=== PATIENT | male | born 1970 | race Caucasian/White ===

== ENCOUNTER 2018-11-23 10:19 | Inpatient (IN) ==
[2018-11-23] MEDS ORDERED: HYDROmorphone INJ 1 MG/ML SYRINGE IV STA ×2 (10:38→11:44)
[2018-11-23] MEDS ORDERED: ONDANSETRON INJ 2 MG/ML 2 ML VIAL IV STA (10:38)
[2018-11-23] MEDS ORDERED: SODIUM CHLORIDE 0.9% 1000ML 1,000 ML IV SCH ×3 (10:45→17:01)
[2018-11-23 10:46] LABS: Basophils # (auto) 0.02 K/uL (0-0.2); Basophils % (auto) 0.2 %; Eosinophils # (auto) 0.04 K/uL (0-0.5); Eosinophils % (auto) 0.3 %; Hematocrit (blood only) 49.1 % (42-52); Hemoglobin 17.2 g/dL (14.0-18.0); Immature Granulocytes # (auto) 0.02 K/uL (0.00-0.02); Immature Granulocytes % (auto) 0.2 %; Lymphocytes # (auto) 0.66 K/uL (1.2-3.4); Lymphocytes % (auto) 5.2 %; Mean Corpuscular Volume 96.5 fL (80-100); Mean Platelet Volume 10.4 fL (7.4-10.4); Monocytes # (auto) 0.93 K/uL (0.11-0.59); Monocytes % (auto) 7.4 %; Neutrophils # (auto) 10.96 K/uL (1.4-6.5); Neutrophils % (auto) 86.7 %; Platelet Count 239 K/uL (130-400); RDW Coefficient of Variation 13.1 % (11.5-14.5); RDW Standard Deviation 46.4 fL (36.4-46.3); Red Blood Count 5.09 M/uL (4.7-6.1); White Blood Count 12.63 K/uL (4.8-10.8)
[2018-11-23 10:59] LABS: INR 1.1 (0.9-1.1); Prothrombin Time 11.1 Seconds (9.0-12.0)
[2018-11-23 11:01] LABS: Alanine Aminotransferase 295 U/L (12-78); Aspartate Aminotransferase 131 U/L (15-37); BUN Creatinine Ratio 11.5 (10-20); Blood Urea Nitrogen 11 mg/dl (7-18); Carbon Dioxide 26 mmol/L (21-32); Chloride 104 mmol/L (98-107); Creatinine Clr Calc Pharmacy 91.1 ml/min; Est GFR (African American) 105.1; Est GFR (Non-African American) 90.7; Glucose 118 mg/dl (70-99); Potassium 3.8 mmol/L (3.5-5.1); Sodium 137 mmol/L (136-145)
[2018-11-23 11:06] LABS: Alkaline Phosphatase 222 U/L (45-117); Bilirubin,Total 4.3 mg/dl (0.2-1); Globulin 4.2 gm/dl (2.5-4.0); Total Protein 8.2 gm/dl (6.4-8.2); Troponin I < 0.015 ng/ml (0-0.045)
--- NOTE | 2018-11-23 11:16 | XRay Report ---
KUB HISTORY: Acute generalized abdominal pain with dehydration ab pain, r/o free air COMPARISON: CT abdomen and pelvis 01/07/2010. FINDINGS: The bowel gas pattern is non-obstructive. There is no organomegaly. Surgical clips project over the upper scrotum bilaterally. Pelvic basin calcifications suggest probable phleboliths. No bessy l or ureteral calculi. The renal shadows are partially obscured by bowel gas. Cholecystectomy clips n oted. Mild to moderate formed stool about the right hemicolon and transverse colon. No renal calculi. No ureteral calculi. No pneumoperitoneum or pneumatosis. No fracture. IMPRESSION: 1. Nonobstructive bowel gas pattern. 2. No pneumatosis or pneumoperitoneum. Electronically signed by: Lonnie Moody M.D. 11/23/2018 11:14 AM
[2018-11-23] MEDS ORDERED: PIPERACILL/TAZOBAC CONSULT ACTIVE PRN ×2 (11:24→16:33)
[2018-11-23] MEDS ORDERED: PIPERACILLIN/TAZOBACTAM 4.5 GM/120 ML BAG IV ONE (11:24)
--- NOTE | 2018-11-23 11:25 | Emergency Department Note ---
Entered by Sathish Man acting as a scribe for Kirk Abdul MD History of Present Illness General Chief complaint: Abdominal Pain Stated complaint: SEVERE ABDOMINAL PAIN Time Seen by Provider: 11/23/18 10:30 Source: patient Limitations: no limitations History of Present Illness Onset (ago): day(s) (this morning) Location: abdomen Severity: similar to prior episodes Pain Consistency: + constant Maximum Pain Intensity: 10 Quality: + other (pinching) Relieved By: + none Associated symptoms: + denies other symptoms (falls), + weakness and + other ( not urinating and producing bowels regularly.); no chest pain, no fever/chills and no nausea/vomiting The patient is a 48 white male w/ PMHx kidney stone who presents to the ED w/ CC of constant abdominal pain beginning this morning. The patient notes he had a similar episode on Sunday. The patient notes his pain is on the top, middle , and right side of his abdomen. He describes the pain as a pinching pain. He notes nothing makes this pain better. The patient states he has not been urinating and producing bowels normally. He notes his urine has been looking darker. He notes he has been pretty lethargic. The patient notes he got his gallbladder taken out 8 years ago and has passed kidney stones before. He denies chest pain, fevers, chills, falls, vomiting, nausea, heavy lifting, and history of pancreatitis. Home Medications Home Medications Medication Instructions Recorded Confirmed Type No Known Home Medications 11/23/18 11/23/18 History Allergies Allergy/AdvReac Type Severity Reaction Status Date / Time No Known Allergies Allergy Unknown Verified 11/23/18 10:54 Past Med/Surg History Medical History No significant past medical history Kidney stone Surgical History History of cholecystectomy Social History Feels Safe at Home: Yes Smoking Status: Current some day smoker Review of Systems See HPI for pertinent positives & negatives. and A total of 10 systems reviewed and were otherwise negative Physical Exam Vital Signs Vital Signs - 24 hr 11/23/18 10:25 11/23/18 10:32 11/23/18 10:34 Temperature 36.4 C L 36.7 C Temperature Source Oral Oral Sepsis Recent Fever Within 48 Hours No No Sepsis New/Unexplained Change in Mental Status No No Sepsis Action Taken by Nursing No Action Required No Action Required Pulse Rate 90 93 H 82 Respiratory Rate 20 16 18 Respiratory Depth Normal Blood Pressure 154/105 H 154/105 H Blood Pressure Mean 121 121 Pulse Oximetry 96 97 Oxygen Delivery Method Room Air Room Air 11/23/18 10:50 11/23/18 11:52 11/23/18 12:00 Temperature Temperature Source Sepsis Recent Fever Within 48 Hours Sepsis New/Unexplained Change in Mental Status Sepsis Action Taken by Nursing Pulse Rate 91 H 85 84 Respiratory Rate 15 40 H 22 Respiratory Depth Blood Pressure 133/70 127/71 Blood Pressure Mean 91 89 Pulse Oximetry Oxygen Delivery Method 11/23/18 12:10 11/23/18 12:20 11/23/18 12:30 Temperature Temperature Source Sepsis Recent Fever Within 48 Hours Sepsis New/Unexplained Change in Mental Status Sepsis Action Taken by Nursing Pulse Rate 84 87 85 Respiratory Rate 26 H 22 23 Respiratory Depth Blood Pressure Blood Pressure Mean Pulse Oximetry Oxygen Delivery Method 11/23/18 12:31 Temperature Temperature Source Sepsis Recent Fever Within 48 Hours Sepsis New/Unexplained Change in Mental Status Sepsis Action Taken by Nursing Pulse Rate 97 H Respiratory Rate 36 H Respiratory Depth Blood Pressure 107/102 H Blood Pressure Mean 103 Pulse Oximetry Oxygen Delivery Method GENERAL: Uncomfortable in appearance. EYE EXAM: Normal conjunctiva. PERRL, no anisocoria and EOM's grossly intact w/o pain OROPHARYNX: Moist MM. NECK: Supple, no nuchal rigidity, no adenopathy, non-tender. No signs of meningismus LUNGS: Clear to auscultation. Normal chest wall mechanics. HEART: NSR, no MRG ABDOMEN: Abdomen soft, normo-active bowel sounds, no masses, no rebound or guarding. Epigastric RUQ periumbilical TTP. BACK: No CVA TTP SKIN: No rashes and no bruising. UPPER EXTREMITIES: Upper extremities are grossly normal. LOWER EXTREMITIES: No pitting edema. No calf pain NEURO EXAM: A and O x3. GCS 15. Moves all 4 extremities on command w/o issue. Course 1056: Past medical records reviewed. The patient was evaluated in room C4, and a complete history and physical examination were performed. 1203: I reviewed the patient's case with Dr. Rakel Delarosa [facility]. She will evaluate the patient for further management. 1216: I reviewed the patient's case with Dr. Carcamo. She recommends getting a MRCP. Administered Medications Sodium Chloride (Nss 1000ml) 1,000 mls @ 200 mls/hr IV .Q5H STA Stop: 11/23/18 17:06 Last Admin: 11/23/18 12:44 Dose: 200 mls/hr Ioversol (Optiray 320 100ml) 94 ml IV ONCE PRN PRN Reason: Interaction Checking Stop: 11/27/18 11:40 Last Admin: 11/23/18 11:41 Dose: 94 ml Discontinued Medications Hydromorphone HCl (Dilaudid) 1 mg IV NOW STA Stop: 11/23/18 10:39 Last Admin: 11/23/18 10:43 Dose: 1 mg Hydromorphone HCl (Dilaudid) 1 mg IV NOW STA Stop: 11/23/18 11:45 Last Admin: 11/23/18 11:48 Dose: 1 mg Sodium Chloride (Nss 1000ml) 1,000 mls @ 999 mls/hr IV .Q1H1M LISSETH Stop: 11/23/18 11:45 Last Infusion: 11/23/18 11:42 Dose: 0 mls/hr Admin: 11/23/18 10:43 Dose: 999 mls/hr Piperacillin Sod/Tazobactam Sod (Zosyn) 4.5 gm in 120 mls @ 240 mls/hr IV NOW ONE Stop: 11/23/18 11:53 Last Infusion: 11/23/18 12:55 Dose: 0 mls/hr Admin: 11/23/18 11:45 Dose: 240 mls/hr Ondansetron HCl (Zofran) 4 mg IV NOW STA Stop: 11/23/18 10:39 Last Admin: 11/23/18 10:43 Dose: 4 mg Medical Decision Making Medical Records Attestation: I reviewed the patient's medical records. Home Medications Current Medication List: was personally reviewed by me Laboratory Data Attestation: I reviewed the patient's lab results. Result diagrams: 11/23/18 10:30 11/23/18 10:30 Lab Results 11/23/18 11/23/18 11/23/18 Range/Units 10:30 10:30 10:30 WBC 12.63 H (4.8-10.8) K/uL RBC 5.09 (4.7-6.1) M/uL Hgb 17.2 (14.0-18.0) g/dL Hct 49.1 (42-52) % MCV 96.5 (80-100) fL MCH 33.8 (25-34) pg MCHC 35.0 (32-36) g/dL RDW Std Deviation 46.4 H (36.4-46.3) fL RDW Coeff of Ainsley 13.1 (11.5-14.5) % Plt Count 239 (130-400) K/uL MPV 10.4 (7.4-10.4) fL Immature Gran % (Auto) 0.2 % Neut % (Auto) 86.7 % Lymph % (Auto) 5.2 % Gregory % (Auto) 7.4 % Eos % (Auto) 0.3 % Baso % (Auto) 0.2 % Immature Gran # (Auto) 0.02 (0.00-0.02) K/uL Neut # (Auto) 10.96 H (1.4-6.5) K/uL Lymph # (Auto) 0.66 L (1.2-3.4) K/uL Gregory # (Auto) 0.93 H (0.11-0.59) K/uL Eos # (Auto) 0.04 (0-0.5) K/uL Baso # (Auto) 0.02 (0-0.2) K/uL PT 11.1 (9.0-12.0) Seconds INR 1.1 (0.9-1.1) Sodium 137 (136-145) mmol/L Potassium 3.8 (3.5-5.1) mmol/L Chloride 104 (98-107) mmol/L Carbon Dioxide 26 (21-32) mmol/L Anion Gap 7.0 (3-11) BUN 11 (7-18) mg/dl Creatinine 0.97 (0.6-1.4) mg/dl Est Cr Clr Drug Dosing 91.1 ml/min Est GFR ( Amer) 105.1 Est GFR (Non-Af Amer) 90.7 BUN/Creatinine Ratio 11.5 (10-20) Glucose 118 H (70-99) mg/dl Lactate (0.4-2.0) mmol/L Calcium 9.0 (8.5-10.1) mg/dl Total Bilirubin 4.3 H (0.2-1) mg/dl AST 131 H (15-37) U/L ALT 295 H (12-78) U/L Alkaline Phosphatase 222 H (45-117) U/L Troponin I < 0.015 (0-0.045) ng/ml Total Protein 8.2 (6.4-8.2) gm/dl Albumin 4.0 (3.4-5.0) gm/dl Globulin 4.2 H (2.5-4.0) gm/dl Albumin/Globulin Ratio 1.0 (0.9-2) Lipase 137 (73-393) U/L Urine Color Urine Appearance (Clear) Urine pH (4.5-7.5) Ur Specific [place] (1.000-1.030) Urine Protein (Negative) Urine Glucose (UA) (Negative) Urine Ketones (Negative) Urine Blood (Negative) Urine Nitrite (Negative) Urine Bilirubin (Negative) Urine Urobilinogen (Negative) Ur Leukocyte Esterase (Negative) 11/23/18 11/23/18 Range/Units 10:48 11:55 WBC (4.8-10.8) K/uL RBC (4.7-6.1) M/uL Hgb (14.0-18.0) g/dL Hct (42-52) % MCV (80-100) fL MCH (25-34) pg MCHC (32-36) g/dL RDW Std Deviation (36.4-46.3) fL RDW Coeff of Ainsley (11.5-14.5) % Plt Count (130-400) K/uL MPV (7.4-10.4) fL Immature Gran % (Auto) % Neut % (Auto) % Lymph % (Auto) % Gregory % (Auto) % Eos % (Auto) % Baso % (Auto) % Immature Gran # (Auto) (0.00-0.02) K/uL Neut # (Auto) (1.4-6.5) K/uL Lymph # (Auto) (1.2-3.4) K/uL Gregory # (Auto) (0.11-0.59) K/uL Eos # (Auto) (0-0.5) K/uL Baso # (Auto) (0-0.2) K/uL PT (9.0-12.0) Seconds INR (0.9-1.1) Sodium (136-145) mmol/L Potassium (3.5-5.1) mmol/L Chloride (98-107) mmol/L Carbon Dioxide (21-32) mmol/L Anion Gap (3-11) BUN (7-18) mg/dl Creatinine (0.6-1.4) mg/dl Est Cr Clr Drug Dosing ml/min Est GFR ( Amer) Est GFR (Non-Af Amer) BUN/Creatinine Ratio (10-20) Glucose (70-99) mg/dl Lactate 0.8 (0.4-2.0) mmol/L Calcium (8.5-10.1) mg/dl Total Bilirubin (0.2-1) mg/dl AST (15-37) U/L ALT (12-78) U/L Alkaline Phosphatase (45-117) U/L Troponin I (0-0.045) ng/ml Total Protein (6.4-8.2) gm/dl Albumin (3.4-5.0) gm/dl Globulin (2.5-4.0) gm/dl Albumin/Globulin Ratio (0.9-2) Lipase (73-393) U/L Urine Color Dark Yellow Urine Appearance Clear (Clear) Urine pH 7.5 (4.5-7.5) Ur Specific [place] 1.025 (1.000-1.030) Urine Protein Negative (Negative) Urine Glucose (UA) Negative (Negative) Urine Ketones Negative (Negative) Urine Blood Negative (Negative) Urine Nitrite Negative (Negative) Urine Bilirubin 2+ H (Negative) Urine Urobilinogen Positive H (Negative) Ur Leukocyte Esterase Negative (Negative) Imaging Data Radiologist's Impression: Radiology results as stated below per my review and the radiologist's interpretation: ABDOMEN AND PELVIS CT WITH IV CONTRAST CT DOSE: 334.40 mGy.cm HISTORY: Acute generalized abdominal pain ab pain TECHNIQUE: Multiaxial CT images of the abdomen and pelvis were performed following the use of intravenous contrast. A dose lowering technique was utilized adhering to the principles of ALARA. COMPARISON STUDY: CT abdomen and pelvis 01/07/2010. FINDINGS: Mild dependent subsegmental bibasilar atelectasis. Calcific granulomata about the lung bases. Evaluation of the lung bases is mildly limited secondary to respiratory motion. No pneumatosis or pneumoperitoneum. The imaged inferior cardiac chambers appear unremarkable. Prior cholecystectomy. Moderate intrahepatic and extrahepatic biliary ductal dilation, possibly on a postsurgical basis. Minimal air about the distal common bile duct is likely secondary to incompetent sphincter of Oddi. No choledocholithiasis identified. Liver otherwise appears unremarkable. Scattered calcified granulomata noted about the spleen. Pancreas and adrenal glands are unremarkable. Probable cyst of the superior pole left kidney, 7 mm. Kidneys are otherwise unremarkable. No renal calculi or hydronephrosis. Mild prostamegaly. Ureters and urinary bladder are within normal limits. Tiny fat filled bilateral inguinal hernias. Aorta and IVC are unremarkable. No adenopathy. Mild wall thickening about the distal esophagus. No bowel obstruction. Visualized appendix appears unremarkable. No ascites or mesenteric inflammation. A few fluid-filled loops of small bowel central abdomen are noted with air-fluid levels physiologic. Bones appear to be intact. IMPRESSION: 1. Prior cholecystectomy. Moderate intrahepatic and extrahepatic biliary ductal dilation is likely on a postsurgical basis. Correlate with liver function tests. 2. No bowel obstruction or focal bowel wall thickening. 3. Mild nonspecific wall thickening about the distal esophagus. 4. Prior granulomatous disease. Electronically signed by: Lonnie Moody M.D. 11/23/2018 11:57 AM KUB HISTORY: Acute generalized abdominal pain with dehydration ab pain, r/o free air COMPARISON: CT abdomen and pelvis 01/07/2010. FINDINGS: The bowel gas pattern is non-obstructive. There is no organomegaly. Surgical clips project over the upper scrotum bilaterally. Pelvic basin calcifications suggest probable phleboliths. No renal or ureteral calculi. The renal shadows are partially obscured by bowel gas. Cholecystectomy clips noted. Mild to moderate formed stool about the right hemicolon and transverse colon. No renal calculi. No ureteral calculi. No pneumoperitoneum or pneumatosis. No fracture. IMPRESSION: 1. Nonobstructive bowel gas pattern. 2. No pneumatosis or pneumoperitoneum. Electronically signed by: Lonnie Moody M.D. 11/23/2018 11:14 AM Blood Pressure Blood Pressure Findings: Elevated blood pressure Blood Pressure Disposition: further management by hospitalist GAVIN Ortiz The patient is a 48 white male w/ PMHx kidney stone who presents to the ED w/ CC of constant abdominal pain beginning this morning. Differential diagnosis: Etiologies such as appendicitis, diverticulitis, PUD, biliary pathology, UTI, pancreatitis, obstruction, mesenteric ischemia, aortic pathology, infections, inflammatory bowel disease, renal colic, as well as others were entertained. Patient was seen and evaluated the bedside. The patient does have a known history of alcohol use. Patient states that he had 3 whiskey and Coke's last evening. He has had intense abdominal pain beginning today. On exam the patient is uncomfortable in appearance. Patient does have prior history of cholecystectomy. Patient did a blood work completed which shows an elevated bilirubin and liver function test. Given the patient's known history of a cholecystectomy believe the patient would benefit from likely ERCP. CT the abdomen pelvis was obtained. Upon reassessment the patient was feeling improved. Patient does have a mild white count at 12,000. No fevers noted. Patient was started on antibiotics. GI was consulted. They recommended MRCP which was ordered. Patient was admitted to the medicine service. I did relate the recommendations of GI to the medicine service. Impression & Plan Biliary obstruction, Pancreatitis, Abdominal pain, Alcohol cessation counseling , Encounter for tobacco use cessation counseling Discharge Plan Visit Data Chief Complaint: Abdominal Pain Stated Complaint: SEVERE ABDOMINAL PAIN ED Provider: Kirk Abdul Discharge Problem: Biliary obstruction, Pancreatitis, Abdominal pain, Alcohol cessation counseling , Encounter for tobacco use cessation counseling Patient Disposition: Being Evaluated by Hospitalist Forms Stand Alone Forms: Call Back Authorization, My [facility] Prescriptions Prescriptions: No Action No Known Home Medications RF: 0 Referrals Referrals: Tk Patton MD [Primary Care Provider] - The scribe's documentation has been prepared under my direction and personally reviewed by me in its entirety. I confirm that the note above accurately reflects all work, treatment, procedures, and medical decision making performed by me.
[2018-11-23] MEDS ORDERED: IOVERSOL 100ml IV PRN (11:41)
--- NOTE | 2018-11-23 11:59 | CT Scan Report ---
ABDOMEN AND PELVIS CT WITH IV CONTRAST CT DOSE: 334.40 mGy.cm HISTORY: Acute generalized abdominal pain ab pain TECHNIQUE: Multiaxial CT images of the abdomen and pelvis were performed following the use of intrave nous contrast. A dose lowering technique was utilized adhering to the principles of ALARA. COMPARISON STUDY: CT abdomen and pelvis 01/07/2010. FINDINGS: Mild dependent subsegmental bibasilar atelectasis. Calcific granulomata about the lung bases. Evaluat ion of the lung bases is mildly limited secondary to respiratory motion. No pneumatosis or pneumoperi toneum. The imaged inferior cardiac chambers appear unremarkable. Prior cholecystectomy. Moderate intrahepatic and extrahepatic biliary ductal dilation, possibly on a postsurgical basis. Minimal air about the distal common bile duct is likely secondary to incompetent sphincter of Oddi. No choledocholithiasis identified. Liver otherwise appears unremarkable. Scattered calcified granulomata noted about the spleen. Pancreas and adrenal glands are unremarkable. Probable cyst of the superior pole left kidney, 7 mm. Kidneys are otherwise unremarkable. No renal calculi or hydronephrosis. Mild prostamegaly. Ureters and urinary bladder are within normal limits. Tiny fat fi lled bilateral inguinal hernias. Aorta and IVC are unremarkable. No adenopathy. Mild wall thickening about the distal esophagus. No bowel obstruction. Visualized appendix appears un remarkable. No ascites or mesenteric inflammation. A few fluid-filled loops of small bowel central ab domen are noted with air-fluid levels physiologic. Bones appear to be intact. IMPRESSION: 1. Prior cholecystectomy. Moderate intrahepatic and extrahepatic biliary ductal dilation is likely on a postsurgical basis. Correlate with liver function tests. 2. No bowel obstruction or focal bowel wall thickening. 3. Mild nonspecific wall thickening about the distal esophagus. 4. Prior granulomatous disease. Electronically signed by: Lonnie Moody M.D. 11/23/2018 11:57 AM
[2018-11-23 12:01] LABS: Appearance Urine Clear (Clear); Blood Urine Negative (Negative); Color Urine Dark Yellow; Glucose Urine UA Negative (Negative); Ketones Urine Negative (Negative); Leukocyte Esterase Urine Negative (Negative); Nitrite Urine Negative (Negative); Protein Urine Negative (Negative); Specific Gravity Urine 1.025 (1.000-1.030); Urobilinogen Urine Positive (Negative); pH Urine 7.5 (4.5-7.5)
[2018-11-23] MEDS ORDERED: SODIUM CHLORIDE 0.9% 1000ML 1,000 ML IV STA (12:07)
[2018-11-23 12:08] LABS: Bilirubin Urine 2+ (Negative)
[2018-11-23 12:09] LABS: Ictotest Urine Positive (Negative)
--- NOTE | 2018-11-23 13:12 | History & Physical Report ---
Date of Service November 23, 2018 Assessment & Plan (1) SIRS (systemic inflammatory response syndrome): (2) Abdominal pain: This is a 48 year old male with no significant pmh who presents to [facility] ED secondary to abdominal pain x 3 days. LFTS elevated Tbili 4.3, AST 131, ALT 295, Alk Phos 222 WBC elevated to 12k Lactate and lipase WNL CT Scan abd/pelvis: IMPRESSION: 1. Prior cholecystectomy. Moderate intrahepatic and extrahepatic biliary ductal dilation is likely on a postsurgical basis. Correlate with liver function tests. GI contacted by ER physician, MRCP ordered and is pending Pt met SIRS criteria on admission with WBC > 12k, RR > 24, HR >90 Source: GI (ddx as noted below) He is afebrile, lactate WNL Received IVF 1L with continued maintenance at 200c/hr and broad spectrum antibiotic zosyn Dx but not limited to: biliary obstruction secondary to strict[facility] at [facility], choledocholithasis, cholangitis, acute hepatitis, pancreatitis -admit to med/surg -consult GI Dr Carcamo -MRCP pending -NPO except chips and sips -IVF 200cc/hr -follow cbc, cmp, lipase -continue IV zosyn until cholangitis ruled out (3) Tobacco abuse: -offered nicotine patch, pt declines at this time -encouraged tobacco cessation (4) DVT prophylaxis: -SCDS, encourage ambulation Disposition: D/C to home when medically able Follow up: PCP Dr. Patton upon discharge Recommend tobacco cessation education prior to discharge Pt was seen in collaboration with Dr. Rinaldi, please see addendum History of Present Illness Chief Complaint: Abdominal pain x 3 days. Primary Care Provider: Tk Pattno MD This is a 48 year old male with no significant pmh who presents to [facility] ED secondary to abdominal pain x 3 days. Sx initially started on sunday after eating spicy meal, pain was central, nonradiating, relieved with rest, made worse with movement. Sx resolved in approx 2-3 hrs on there own w/o intervention. he felt well, was just, "sore." Was able to go to work Sunday and came home and drank 3 whiskey and cokes. Woke up early this morning at 1am with severe 16/10 abdominal pain, again central, nonradiating, worse with movement, deep breathing, lying flat. Sx impoved with rest, bringing knees to chest. Tried alkaseltzer no relief. [place] diaphoretic. Was able to return to sleep approx 1 hr and sx were unrelenting therefore he presented to ED. Currently pain 3/10. Denies fever, chills, recent URI or illness, chest pain, sob at rest, hemoptysis, cough, n/v/d, dysuria, hematuria, increased freq/ urg with urination. 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 He is an every day tobacco user with snuff, 3/4 can a day. Drinks sunday and sunday nights 3 whiskey and cokes. Otherwise no PMH except he does have a hx of cholecystectomy and nephrolithiasis. No FH of Liver disease, +mother with colon cancer. local intermodal truck driver significant other is at bedside, Ginette. Allergies Allergy/AdvReac Type Severity Reaction Status Date / Time No Known Allergies Allergy Unknown Verified 11/23/18 10:54 Home Medications Home Medications Medication Instructions Recorded Confirmed Type No Known Home Medications 11/23/18 11/23/18 History Past Med/Surg History Medical History Alcohol use Biliary obstruction GERD (gastroesophageal reflux disease) History of esophageal dilatation secondary to food bolus due to chronic GERD Kidney stone Pancreatitis Tobacco use Surgical History History of cholecystectomy History of esophagogastroduodenoscopy (EGD) Hx of cholecystectomy Family History Father Unknown family medical history Mother Colon cancer Social History marital status: Single marital status details: Long time Girlfriend of 20 years Current Living Situation: Significant Other current occupational status: employed current occupation: [employer] Other Information That Helps Us Care for You: No Feels Safe at Home: Yes Safety Concerns: Feels Safe At This Time Smoking Status: Former smoker Tobacco Type: smokeless tobacco Cigarettes per Day: used to smoke occassionally at sister's house Do You Dip or Chew Tobacco: Yes (1/2-3/4 can/day) Second Hand Exposure: No Tobacco Cessation Education Requested by Patient: No Hx Alcohol Use: Yes Alcohol type: hard liquor Alcohol Intake Frequency: a few times a week Alcohol Intake Frequency Comment: 2 nights weekly, sunday/sunday 3 whiskey and cokes Hx Substance Use: No Beliefs That Will Affect Care: None Preferred Language: Serbian Communication Ability: Effective Fabrication Specialist Required: No Review of Systems All systems reviewed & are unremarkable except as noted in HPI & below Physical Exam 2 Vital Signs (Past 24 Hours): Last Vital Signs Temp 36.7 C 11/23/18 10:34 Pulse 97 H 11/23/18 12:31 Resp 36 H 11/23/18 12:31 BP 107/102 H 11/23/18 12:31 Pulse Ox 97 11/23/18 10:34 Physical Exam: Gen: WD/WN, M, diaphoretic, +pain, sitting up in bed, pleasant , conversing easily Head: Normocephalic, Atraumatic Eyes: Sclera normal, no conjunctival injection, PERRLA, EOMI ENT: Gross hearing intact, normal pharynx, mucous membranes dry Neck: supple, no adenopathy, No JVD, no bruit, Resp: Clear to auscultation b/l, no wheeze, rales, rhonchi. Normal insp/exp effort, no accessory muscle use CV: Regular rate, regular rhythm, no murmur, rub, gallop, or ectopy Abd: + hypoactive BS x 4, soft, +tender in epigastrum/periumbilical region, + guarding, no rebound or rigidity, nondistended Musculoskeletal: moves extremities active rom x 4, strength intact, good ict teacher strength Extremities: No edema bilaterally Skin: warm, moist, no rash, negative turgor, cap refill < 2sec Neuro: Alert and oriented x 3, speech normal, good mood/affect, cran nerve 2-12 intact grossly : deferred Results & Data Laboratory Results Short CBC 11/23/18 11/23/18 Range/Units 10:30 10:30 WBC 12.63 H (4.8-10.8) K/uL Hgb 17.2 (14.0-18.0) g/dL Hct 49.1 (42-52) % Plt Count 239 (130-400) K/uL Total Bilirubin 4.3 H (0.2-1) mg/dl BMP 11/23/18 10:30 Sodium 137 Potassium 3.8 Chloride 104 Carbon Dioxide 26 BUN 11 Creatinine 0.97 Glucose 118 H Calcium 9.0 Cardiac Enzymes 11/23/18 Range/Units 10:30 Troponin I < 0.015 (0-0.045) ng/ml Liver Function 11/23/18 Range/Units 10:30 Total Bilirubin 4.3 H (0.2-1) mg/dl AST 131 H (15-37) U/L ALT 295 H (12-78) U/L Alkaline Phosphatase 222 H (45-117) U/L Albumin 4.0 (3.4-5.0) gm/dl Urine 11/23/18 Range/Units 11:55 Urine Color Dark Yellow Urine Appearance Clear (Clear) Urine pH 7.5 (4.5-7.5) Ur Specific [place] 1.025 (1.000-1.030) Urine Protein Negative (Negative) Urine Glucose (UA) Negative (Negative) Diagnostic Findings KUB: IMPRESSION: 1. Nonobstructive bowel gas pattern. 2. No pneumatosis or pneumoperitoneum. Abd/pelvis CT: IMPRESSION: 1. Prior cholecystectomy. Moderate intrahepatic and extrahepatic biliary ductal dilation is likely on a postsurgical basis. Correlate with liver function tests. 2. No bowel obstruction or focal bowel wall thickening. 3. Mild nonspecific wall thickening about the distal esophagus. 4. Prior granulomatous disease. Code Status & VTE Plan Code Status Full Code VTE Prophylaxis Plan VTE Prophylaxis will be ordered: Yes Reason for no VTE drug order: Treatment not indicated Supervising Physician Co-Signing Physician Notes I have seen and examined the patient with our team's physician housekeeper/laundry assistant and agree with the assessment and plan as above and would like to add that MRCP was completed "Prior cholecystectomy. Moderate intrahepatic and extrahepatic biliary ductal dilation is noted with abrupt luminal narrowing about the distal common bile duct just proximal to the ampulla. No discrete choledocholithiasis identified, however this finding is concerning for underlying biliary stricture or choledocholithiasis. " At this time, we are contacting the gastroenterology service to consider performing ERCP for patient with possible choledocholithiasis will continue IV Zosyn for antibiotic coverage as above and pain medications and IV hydration agree with other medical management as documented by physician housekeeper/laundry assistant patient seen and examined in the ED Vitals: hemodynamically stable, afebrile General: speaking on room air, occasional wincing from pain Abdomen: soft, nontender, bowel sounds present, patient points to pain of central abdomen Heart:regular rate Lungs: clear to auscultation bilaterally, no wheezing Extremities: no calf tenderness Neuro/Psych: awake and alert, no focal neurological deficits _ (1) Abdominal pain Abdominal location: generalized Qualified Code(s): R10.84 - Generalized abdominal pain
--- NOTE | 2018-11-23 14:30 | XRay Report ---
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 Screening for MR I. COMPARISON: CT abdomen and pelvis of same day TECHNIQUE: 3 views of the orbits FINDINGS: No opaque foreign body of the orbits identified. No acute facial bone fracture. Paranasal sinuses nabila ear clear. IMPRESSION: No opaque foreign body of the orbits identified. The above report was generated using voice recognition software. It may contain grammatical, syntax o r spelling errors. Electronically signed by: Lonnie Moody M.D. 11/23/2018 2:28 PM
--- NOTE | 2018-11-23 15:15 | Magnetic Resonance Report ---
MR MRCP HISTORY: 48 years-old Male elevated t bili and LFTs acute central abdominal pain with elevated LFTs COMPARISON: CT abdomen and pelvis of same day TECHNIQUE: MRCP without the use of IV contrast was obtained according to institutional protocol. FINDINGS: 7 mm T2 hyperintense lesions of the superior pole left kidney suggestive of a cyst. The spleen, pancr eas and adrenal glands appear unremarkable. No focal abnormality identified within the hepatic parenc hyma. No bowel obstruction or aortic aneurysm. Periaortic lymph nodes are seen measuring up to 7 mm i n short axis, likely reactive. Prior cholecystectomy. Moderate intrahepatic and extrahepatic biliary ductal dilation with common bile duct measuring up to 10 mm transversely. There is abrupt cut off not ed about the distal common bile duct on image 86 series 6 is proximal to the ampulla. Cystic duct rem nant appears unremarkable. Pancreatic duct is unremarkable. IMPRESSION: Prior cholecystectomy. Moderate intrahepatic and extrahepatic biliary ductal dilation is noted with a brupt luminal narrowing about the distal common bile duct just proximal to the ampulla. No discrete c holedocholithiasis identified, however this finding is concerning for underlying biliary stricture or choledocholithiasis. Further evaluation with ERCP may be beneficial to further characterize. The above report was generated using voice recognition software. It may contain grammatical, syntax o r spelling errors. Electronically signed by: Lonnie Moody M.D. 11/23/2018 3:13 PM
[2018-11-23] MEDS ORDERED: ONDANSETRON INJ 2 MG/ML 2 ML VIAL IV PRN (16:33)
--- NOTE | 2018-11-23 16:51 | History & Physical Report ---
Date of Service November 23, 2018 History of Present Illness Chief Complaint: Abdominal pain Primary Care Provider: Tk Patton MD 48 yo male with a history of prior etoh use (now reportedly drinking whisky on the weekends), prior cholecystectomy 7-8 years ago. Reports having severe abd pain- ruq on sunday that came out of the blue, felt so severe he has some fevers, took florencia seltzer and it got better. Recurrence of the same pain around 1 am this morning, took florencia setlzer again but pain persisted so came into the ER. In the er, noted to be afebrile, hemodynamically stable. Wbc count elevation and and lft elevation - cholestatic pattern. CT A/P with contrast done showing ih/eh biliary dilation reportedly, normal pancreas. ER called me and MRCP was done. MRCP shows distal cbd stricture, no evidence of stones. Currently, patient is nearly pain free in his room on the floor- reports pain is maybe 1/10, but when he came in it was 10/10. No fevers, chills. Feels slightly constipated - otherwise no other complaints. Reports no weight loss, no changes in his stool pattern or color. Allergies Allergy/AdvReac Type Severity Reaction Status Date / Time No Known Allergies Allergy Unknown Verified 11/23/18 10:54 Home Medications Home Medications Medication Instructions Recorded Confirmed Type No Known Home Medications 11/23/18 11/23/18 History Past Med/Surg History Medical History Alcohol use Biliary obstruction GERD (gastroesophageal reflux disease) History of esophageal dilatation secondary to food bolus due to chronic GERD Kidney stone Pancreatitis Tobacco use Surgical History History of cholecystectomy History of esophagogastroduodenoscopy (EGD) Hx of cholecystectomy Family History Father Unknown family medical history Mother Colon cancer Social History marital status: Single marital status details: Long time Girlfriend of 20 years Current Living Situation: Significant Other current occupational status: employed current occupation: [employer] Other Information That Helps Us Care for You: No Feels Safe at Home: Yes Safety Concerns: Feels Safe At This Time Smoking Status: Former smoker Tobacco Type: smokeless tobacco Cigarettes per Day: used to smoke occassionally at sister's house Do You Dip or Chew Tobacco: Yes (1/2-3/4 can/day) Second Hand Exposure: No Tobacco Cessation Education Requested by Patient: No Hx Alcohol Use: Yes Alcohol type: hard liquor Alcohol Intake Frequency: a few times a week Alcohol Intake Frequency Comment: 2 nights weekly, sunday/sunday 3 whiskey and cokes Hx Substance Use: No Beliefs That Will Affect Care: None Preferred Language: Kiswahili Communication Ability: Effective Mechanical Energy Engineer Required: No Review of Systems All systems reviewed & are unremarkable except as noted in HPI & below Physical Exam 2 Vital Signs (Past 24 Hours): Last Vital Signs Temp 37.2 C 11/23/18 16:02 Pulse 80 11/23/18 16:02 Resp 20 11/23/18 16:02 BP 143/83 H 11/23/18 16:02 Pulse Ox 95 11/23/18 16:02 Physical Exam: General NAD Eyes: PERRL, conjunctivae normal, anicteric sclerae Respiratory: normal respiratory effort, lungs clear to auscultation Cardiovascular: RRR, no murmur, no edema Gastrointestinal (Abdomen): normal bowel sounds, soft, nontender, no hepatosplenomegaly Skin: no rashes, warm and dry Results & Data Laboratory Results Labs all reviewed AST/ALT/Alk phos/TB elevation Diagnostic Findings MRCP reviewed CT A/P reviewed Code Status & VTE Plan VTE Prophylaxis Plan VTE Prophylaxis will be ordered: Yes Reason for no VTE drug order: Treatment not indicated Supervising Physician Co-Signing Physician Notes 48 yo male with history of a cholecystectomy 8 years ago, with intermittent ruq abd pain leading to ER visit. Imaging showing ? cbd stricture, cholestatic lft elevation, afebrile. No stones noted on imaging. Does drink alcohol. Would obtain PT/PTT/INR. Would trend lft's. NPO after midnite potentially. IV fluid- LR would be preferred. No evidene of pancreatitis. If pain is improved, may consider outpatient ERCP given findings on MRCP. Assess clinical response to IV fluids, limited po intake, continue empiric IV antibiotics. Please check an PT/PTT/INR in am as well and follow lft's in am as well.
[2018-11-23] MEDS: PIPERACILLIN/TAZOBACTAM 3.375 GM in DEXTROSE 5% 100 ML IV SCH (17:26)
[2018-11-24] MEDS: LACTATED RINGER'S 1,000 ML IV SCH ×4 (00:03→12:55)
[2018-11-24] MEDS: MoRPHine SULFATE 4 MG/ML 1 ML CARP\\VIAL IV PRN ×3 (00:03→20:13)
[2018-11-24] MEDS: PIPERACILLIN/TAZOBACTAM 3.375 GM in DEXTROSE 5% 100 ML IV SCH ×2 (02:17→09:44)
[2018-11-24 08:06] LABS: Basophils # (auto) 0.01 K/uL (0-0.2); Basophils % (auto) 0.2 %; Eosinophils # (auto) 0.09 K/uL (0-0.5); Eosinophils % (auto) 1.6 %; Hematocrit (blood only) 41.8 % (42-52); Hemoglobin 14.2 g/dL (14.0-18.0); Immature Granulocytes # (auto) 0.01 K/uL (0.00-0.02); Immature Granulocytes % (auto) 0.2 %; Lymphocytes # (auto) 0.81 K/uL (1.2-3.4); Lymphocytes % (auto) 14.8 %; Mean Corpuscular Volume 96.3 fL (80-100); Monocytes # (auto) 0.79 K/uL (0.11-0.59); Monocytes % (auto) 14.4 %; Neutrophils # (auto) 3.77 K/uL (1.4-6.5); Neutrophils % (auto) 68.8 %; Platelet Count 157 K/uL (130-400); RDW Coefficient of Variation 13.5 % (11.5-14.5); Red Blood Count 4.34 M/uL (4.7-6.1); White Blood Count 5.48 K/uL (4.8-10.8)
--- NOTE | 2018-11-24 08:15 | Hospitalist Progress Note ---
Date of Service November 24, 2018 Assessment & Plan (1) SIRS (systemic inflammatory response syndrome): (2) Abdominal pain: Patient met SIRS criteria on admission with WBC > 12k, RR > 24, HR >90 but does not appear to have sepsis MRCP was completed on 11/23/18 on admission "Prior cholecystectomy. Moderate intrahepatic and extrahepatic biliary ductal dilation is noted with abrupt luminal narrowing about the distal common bile duct just proximal to the ampulla. No discrete choledocholithiasis identified, however this finding is concerning for underlying biliary stricture or choledocholithiasis. " At this time, gastroenterology service planning to perform ERCP on 11/24/18 for patient with possible choledocholithiasis will continue IV Zosyn for antibiotic coverage as above and pain medications and IV hydration (3) Tobacco abuse: -patient was offered nicotine patch and patient declined -encouraged tobacco cessation (4) DVT prophylaxis: -SCDS, encourage ambulation Subjective Patient continues to be NPO Patient ambulatory. reports he was able to sleep. has abdominal pain around center of belly that comes and goes. denies vomiting. not in acute distress denies chest pain or shortness of breath Physical Exam 2 Vital Signs (Past 24 Hours): Last Vital Signs Temp 36.9 C 11/24/18 08:00 Pulse 61 11/24/18 08:00 Resp 18 11/24/18 08:00 BP 104/62 11/24/18 08:00 Pulse Ox 98 11/24/18 08:00 Constitutional: WD/WN, vitals as above Eyes: PERRL, conjunctivae normal, anicteric sclerae + eyes dysmorphic ENMT: external ear and nose normal, oropharynx normal Neck: trachea midline, no thyromegaly Respiratory: normal respiratory effort, lungs clear to auscultation Cardiovascular: RRR, no murmur, no edema Gastrointestinal (Abdomen): Inspection/Auscultation: abdomen normal to inspection and normal bowel sounds Percussion/Palpation: + abdomen tender ( tenderness around epigastrum) Musculoskeletal: Head/Neck/Chest: normocephalic and head atraumatic Neurologic: PERRL, EOMI, accommodation nl, no face palsy, no dysarthria CN' s II-XI intact bilaterally Psychiatric: A+Ox3, euthymic affect _ (1) Abdominal pain Abdominal location: generalized Qualified Code(s): R10.84 - Generalized abdominal pain
[2018-11-24 08:32] LABS: Partial Thromboplastin Time 27.2 Seconds (21.0-31.0)
[2018-11-24 08:40] LABS: Albumin Globulin Ratio 0.9 (0.9-2); BUN Creatinine Ratio 13.8 (10-20); Bilirubin,Total 8.7 mg/dl (0.2-1); Calcium 8.9 mg/dl (8.5-10.1); Creatinine Clr Calc Pharmacy 106.5 ml/min; Est GFR (African American) 118.9; Est GFR (Non-African American) 102.6; Globulin 3.5 gm/dl (2.5-4.0); Total Protein 6.5 gm/dl (6.4-8.2)
[2018-11-24] MEDS ORDERED: fentaNYL citrate 100 MCG/2 ML VIAL IV PRN (09:07)
[2018-11-24] MEDS ORDERED: ONDANSETRON INJ 2 MG/ML 2 ML VIAL IV PRN (09:07)
[2018-11-24] MEDS ORDERED: ATROPINE SULFATE 0.1 MG/ML 10ML SYR IV PRN (09:07)
[2018-11-24] MEDS ORDERED: ePHEDrine sulfate 50 MG/ML AMP IV PRN (09:07)
[2018-11-24] MEDS ORDERED: fentaNYL citrate 100 MCG/2 ML VIAL ONE (09:21)
[2018-11-24] MEDS ORDERED: PROPOFOL IV EMULSION 10 MG/ML 20 ML VIAL IV ONE (09:26)
[2018-11-24] MEDS ORDERED: SUCCINYLCHOLINE CHLORIDE 20 MG/ML 10 ML VIAL ONE (09:26)
[2018-11-24] MEDS ORDERED: LIDOCAINE HCL 2% 2 ML VIAL/AMP(20MG/ML) INFIL ONE ×2 (09:26→10:31)
[2018-11-24] MEDS ORDERED: DEXAMETHASONE SOD INJ 4 MG/ML VIAL ONE (09:26)
[2018-11-24] MEDS ORDERED: ONDANSETRON INJ 2 MG/ML 2 ML VIAL ONE (09:26)
--- NOTE | 2018-11-24 09:54 | Anesthesiology Consultation ---
Date of Service November 24, 2018 Assessment & Plan (1) Encounter for pre-operative examination: Chart Review Chart Review: Acceptable Risk for Surgery Consults Requested none ASA ASA2 Proposed Anesthesia Anesthesia Type: General Risk / Benefits Reviewed With: PT / POA / Parent / Guardian, Accepts Plan and Informed Consent Obtained NPO Date Last Intake of Fluids: 11/24/18 Time Last Intake of Fluids: 00:00 Date Last Intake of Solids: 11/24/18 Time Last Intake of Solids: 00:00 History Surgery Operation Date: 11/24/18 11:00 Proposed Procedures p Endoscopic Retrograde Cholangiopancreato - Dwight Jamison MD Height/Weight Height: 5 ft 9 in Weight: 77.8 kg Allergies Allergy/AdvReac Type Severity Reaction Status Date / Time No Known Allergies Allergy Unknown Verified 11/23/18 10:54 Medications Home Medications Medication Instructions Recorded Confirmed Last Taken No Known Home Medications 11/23/18 11/23/18 Unknown Active Medications Generic Name Dose Route Start Last Admin Trade Name Freq PRN Reason Stop Dose Admin Piperacillin Sod/Tazobactam 115 mls @ 28.75 mls/hr 11/23/18 18:00 11/24/18 09 :44 Sod 3.375 gm/ Dextrose IV 12/03/18 17:59 28.8 mls/hr Q8H LISSETH Administration Protocol Lactated Ringer's 1,000 mls @ 200 mls/hr 11/23/18 21:33 11/24/18 08:32 Lr IV 12/23/18 21:32 200 mls/hr .Q5H LISSETH Administration Morphine Sulfate 4 mg 11/23/18 16:33 11/24/18 08:31 Morphine Sulfate IV 12/07/18 16:32 4 mg Q4H PRN Administration Pain Past Medical History Medical History Alcohol use Biliary obstruction GERD (gastroesophageal reflux disease) History of esophageal dilatation secondary to food bolus due to chronic GERD Kidney stone Pancreatitis Tobacco use Past Family History Family History Father Unknown family medical history Mother Colon cancer Past Surgical History Surgical History History of cholecystectomy History of esophagogastroduodenoscopy (EGD) Hx of cholecystectomy Past Anesthesia History No Hx of Anesthesia Complications and No Family Hx of Anesthesia Complications History of PONV No Motion Sickness Screening History of Motion Sickness: No Social History Smoking Status: Former smoker tobacco type: smokeless tobacco Smoking cigarettes per day: used to smoke occassionally at sister's house Do You Dip or Chew Tobacco: Yes (1/2-3/4 can/day) Hx Alcohol Use: Yes Alcohol type: hard liquor alcohol intake frequency: a few times a week Alcohol Intake Frequency Comment: on , about 9 drinks of wiskey/soda over Fri/Sat Hx Substance Use: No Exercise / Class Metabolic Activity II 4-5 Yardwork/Stairs/Walk up hill Physical Exam Vital Signs Last Vital Signs Temp 98.4 F 11/24/18 08:00 Pulse 60 11/24/18 09:10 Resp 18 11/24/18 08:00 BP 104/62 11/24/18 08:00 Pulse Ox 98 11/24/18 08:00 ENMT Mouth: + chipped teeth Thyromental Distance: > or= 3.5 Finger Breadths Mallampati Class: III Neck normal visual inspection Respiratory normal respiratory effort Auscultation: lungs clear to auscultation bilaterally Cardiovascular Rate/Rhythm: regular rate and regular rhythm Testing Laboratory Results 11/24/18 07:37 11/24/18 07:37 PT 11.1 Seconds (9.0-12.0) 11/23/18 10:30 INR 1.1 (0.9-1.1) 11/23/18 10:30 APTT 27.2 Seconds (21.0-31.0) 11/24/18 07:37 Urine Color Dark Yellow 11/23/18 11:55 Urine Appearance Clear (Clear) 11/23/18 11:55 Urine pH 7.5 (4.5-7.5) 11/23/18 11:55 Ur Specific [place] 1.025 (1.000-1.030) 11/23/18 11:55 Urine Protein Negative (Negative) 11/23/18 11:55 Urine Glucose (UA) Negative (Negative) 11/23/18 11:55 Urine Ketones Negative (Negative) 11/23/18 11:55 Urine Nitrite Negative (Negative) 11/23/18 11:55 Ur Leukocyte Esterase Negative (Negative) 11/23/18 11:55 11/24/18 09:17 POC Glucose 73
--- NOTE | 2018-11-24 10:00 | History & Physical Bridge Note ---
Date of Service November 24, 2018 History & Physical Bridge Note I have examined the patient, reviewed the History & Physical and in the interval since the performance of the History & Physical I have noted the following changes of clinical significance: no changes noted ERCP today
[2018-11-24] MEDS ORDERED: INDOMETHACIN 50 MG SUPP PR STA (10:11)
[2018-11-24] MEDS ORDERED: INDOMETHACIN 50 MG SUPP PR ONE (10:13)
[2018-11-24] MEDS ORDERED: ROCURONIUM BROMIDE 10 MG/ML 5 ML VIAL ONE (10:33)
--- NOTE | 2018-11-24 10:57 | Operative Report ---
Post Operative Report Pre & Post Diagnosis Operation Date: 11/24/18 11:00 Pre-Op Diagnosis: BILIARY OBSTRUCTION Post-Op Diagnosis: BILIARY OBSTRUCTION Procedure Operation Date: 11/24/18 11:00 Actual Procedures p Endoscopic Retrograde Cholangiopancreato - Dwight Jamison MD Surgeon Dwight Jamison MD Level Vial Inside Grinder None Estimated Blood Loss 0 Findings See Below (Ampullary stenosis, Pus drained. cholangitis noted, CBD stent placed) Specimens none Description of Procedure ERCP I attest to the content of the Intraoperative Record and any orders documented therein. Any exceptions are noted below.
--- NOTE | 2018-11-24 11:22 | Fluoroscopy Report ---
FL ERCP biliary ductal CLINICAL HISTORY: 48 years-old Male presenting with ERCP IN OR. TECHNIQUE: Fluoroscopy was provided for endoscopic retrograde cholangiopancreatography. 5 fluoroscopi c image(s) recorded. COMPARISON: MRCP from 11/23/2018. FINDINGS: Procedure: An endoscope was introduced into the duodenum and a microcatheter advanced into the pancre atic ductal and biliary trees. The biliary tree was opacify with contrast and noted to be dilated in both the intrahepatic and extra hepatic portions. Filling defect in the region of the distal common d uct may represent a balloon or calculus subsequently, a plastic common bile duct stent was placed ter minating in the duodenum. Cholecystectomy clips noted with mild distention of the cystic duct Louie. Peritoneal spillage: No evidence of peritoneal spillage of contrast. Extrahepatic bile ducts: Common bile duct is dilated. Possible filling defect within the distal commo n duct versus balloon. Contrast does not extend into the small bowel on the last recorded image. Intrahepatic bile ducts: Intrahepatic bladder ductal dilatation diffusely. Fluoroscopy dosage (mGy): 21.58. Fluoroscopy time: 102 seconds. Number or time of fluoroscopic spot images: 0. IMPRESSION: Placement of a plastic common bile duct stent on ERCP. Electronically signed by: Michael Puga M.D. 11/24/2018 11:21 AM
--- NOTE | 2018-11-24 11:26 | Anesthesiology Progress Note ---
Date of Service November 24, 2018 Anesthesia Post Procedure Vital Signs Vital Signs: Temp Pulse Pulse Resp BP BP Pulse Ox 11/24/18 11:25 54 L 13 98 11/24/18 11:21 51 L 12 119/77 98 11/24/18 11:20 69 16 97 11/24/18 11:17 55 L 16 97 11/24/18 11:16 55 L 12 113/76 96 11/24/18 11:15 55 L 10 L 99 11/24/18 11:11 60 16 119/71 95 11/24/18 11:10 70 20 97 11/24/18 11:08 62 17 95 11/24/18 11:07 58 L 18 121/79 96 11/24/18 11:06 97.9 F 64 12 121/79 96 11/24/18 09:45 66 11/24/18 09:40 58 L 11/24/18 09:35 59 L 11/24/18 09:30 59 L 11/24/18 09:25 54 L 11/24/18 09:20 60 11/24/18 09:15 58 L 11/24/18 09:10 77 11/24/18 09:05 55 L 11/24/18 09:00 55 L 11/24/18 08:55 57 L 11/24/18 08:50 56 L 11/24/18 08:45 66 11/24/18 08:40 54 L 11/24/18 08:35 71 11/24/18 08:30 59 L 11/24/18 08:25 60 11/24/18 08:20 63 11/24/18 08:15 75 11/24/18 08:10 57 L 11/24/18 08:05 53 L 11/24/18 08:00 98.4 F 63 61 18 104/62 98 11/24/18 07:55 58 L 11/24/18 07:50 62 11/24/18 07:45 60 11/24/18 07:40 58 L 11/24/18 07:35 64 11/24/18 07:30 61 11/24/18 07:25 56 L 11/24/18 07:20 52 L 11/24/18 07:15 53 L 11/24/18 07:10 54 L 11/24/18 07:05 57 L 11/24/18 07:00 56 L 11/24/18 06:55 57 L 11/24/18 06:50 56 L 11/24/18 06:45 55 L 11/24/18 06:40 55 L 11/24/18 06:35 62 11/24/18 06:30 59 L 11/24/18 06:25 55 L 11/24/18 06:20 58 L 11/24/18 06:15 75 11/24/18 06:10 81 11/24/18 04:06 97.7 F 65 18 118/67 97 11/23/18 23:04 99.1 F 72 16 121/70 96 11/23/18 19:49 99.3 F 75 18 102/58 L 97 11/23/18 18:15 81 11/23/18 18:02 99.5 F 77 20 133/80 95 11/23/18 16:02 99.0 F 80 20 143/83 H 95 11/23/18 15:06 87 147/80 H 94 11/23/18 14:00 85 25 H 11/23/18 13:50 84 24 11/23/18 13:40 83 19 11/23/18 13:30 83 29 H 11/23/18 13:20 93 H 18 11/23/18 13:10 82 18 11/23/18 13:00 86 22 137/87 11/23/18 12:55 85 23 140/88 11/23/18 12:50 86 29 H 11/23/18 12:40 84 15 11/23/18 12:31 97 H 36 H 107/102 H 11/23/18 12:30 85 23 11/23/18 12:20 87 22 11/23/18 12:10 84 26 H 11/23/18 12:00 84 22 127/71 11/23/18 11:52 85 40 H 133/70 Pain Intensity Abdomen: Pain Intensity: 0 Notes Mental Status: alert / awake / arousable and participated in evaluation Patient Amnestic to Procedure: Yes Nausea / Vomiting: adequately controlled Pain: adequately controlled Airway Patency, RR, SpO2: stable & adequate BP & HR: stable & adequate Hydration State: stable & adequate Anesthetic Complications: no major complications apparent and Pt Satisfied with anesthetic care
--- NOTE | 2018-11-24 11:33 | GI REPORT ---
Patient Name: Sundeep Seo Procedure Date: 11/24/2018 9:59 AM Date of : 1970 Admit Type: Inpatient Age: 48 Gender: Male Attending MD: Dwight Jamison MD Procedure: ERCP Providers: Dwight Jamison MD Referring MD: Manolo Rinaldi M.d., Chrystal Carcamo M.d. Indications: Abdominal pain of suspected biliary origin, Abnormal MRCP, For therapy of ascending cholangitis, Hx of CBD stone in 2009 s/p ERCP with sphincterotomy. Medicines: General Anesthesia Complications: No immediate complications. Estimated Blood Loss: Estimated blood loss: none. Procedure: Pre-Anesthesia Assessment: - Prior to the procedure, a History and Physical was performed, and patient medications and allergies were reviewed. The patient is competent. The risks and benefits of the procedure and the sedation options and risks were discussed with the patient. All questions were answered and informed consent was obtained. Patient identification and proposed procedure were verified by the physician and the nurse in the procedure room. Mental Status Examination: alert and oriented. Airway Examination: normal oropharyngeal airway and neck mobility. Respiratory Examination: clear to auscultation. CV Examination: normal. ASA Grade Assessment: III - A patient with severe systemic disease. After reviewing the risks and benefits, the patient was deemed in satisfactory condition to undergo the procedure. The anesthesia plan was to use general anesthesia. Immediately prior to administration of medications, the patient was re-assessed for adequacy to receive sedatives. The heart rate, respiratory rate, oxygen saturations, blood pressure, adequacy of pulmonary ventilation, and response to care were monitored throughout the procedure. The physical status of the patient was re-assessed after the procedure. After obtaining informed consent, the scope was passed under direct vision. Throughout the procedure, the patient's blood pressure, pulse, and oxygen saturations were monitored continuously. The Scope was introduced through the mouth, and advanced to the duodenum and used to inject contrast into the bile duct. The ERCP was accomplished without difficulty. The patient tolerated the procedure well. Findings: A miller first film of the abdomen was obtained. Surgical clips, consistent with a previous cholecystectomy, were seen in the area of the right upper quadrant of the abdomen. The esophagus was successfully intubated under direct vision. The scope was advanced to a normal major papilla in the descending duodenum without detailed examination of the pharynx, larynx and associated structures, and upper GI tract. The upper GI tract was grossly normal. A biliary sphincterotomy had been performed. The sphincterotomy appeared stenosed or narrowed. A 0.035 inch straight standard wire was passed into the biliary tree from the first attempt. The Fusion OMNI sphincterotome was passed over the guidewire and the bile duct was then deeply cannulated. Contrast was injected. I personally interpreted the bile duct images. Ductal flow of contrast was adequate. Image quality was adequate. Contrast extended to the main bile duct. The main bile duct was markedly dilated. The largest diameter was 12 mm. The biliary sphincterotomy was carefully extended to a total of 2 - 3 mm in length with a monofilament Fusion OMNI sphincterotome using ERBE electrocautery. There was no post-sphincterotomy bleeding. Dilation of the common bile duct with a 6 mm balloon dilator was successful. The biliary tree was swept with a 15 mm balloon starting at the bifurcation. Pus was swept from the duct. Sludge was swept from the duct. One 7 Fr by 7 cm plastic stent with a full external pigtail and a full internal pigtail was placed into the common bile duct. Pus flowed through the stent. The stent was in good position. The total fluoroscopy exposure time was 1 minute and 41 seconds. Indomethacin 100 mg was given via suppository to decrease the risk of post-ERCP pancreatitis (PEP). PD wasn not cannulated nor injected with contrast. Impression: - Prior biliary sphincterotomy appeared stenosed. - The entire main bile duct was markedly dilated. - A minimal extension of biliary sphincterotomy was performed. - Common bile duct was successfully dilated. - The biliary tree was swept and pus and sludge were found. - One plastic stent was placed into the common bile duct. Recommendation: - [facility]. - Clear liquid diet today then advance as tolerated. - Continue ABx and plan to complete 10 days course of Cipro upon discharge. - Repeat ERCP in 4 weeks to remove stent. - Monitor LFTs. Dwight Jamison MD 11/24/2018 11:32:58 AM This report has been signed electronically. Note Initiated On: 11/24/2018 9:59 AM Number of Addenda: 0 I attest to the content of the Intraoperative Record and orders documented therein, exceptions below {[id number]}
[2018-11-24] MEDS: metroNIDAZOLE 500 MG/100 ML BAG IV SCH ×2 (14:09→22:27)
[2018-11-24] MEDS: CIPROFLOXACIN 400 MG/200 ML BAG IV SCH (16:12)
[2018-11-24] MEDS ORDERED: ACETAMINOPHEN 325 MG TAB PO PRN (16:58)
[2018-11-25] MEDS: CIPROFLOXACIN 400 MG/200 ML BAG IV SCH (02:50)
[2018-11-25] MEDS: metroNIDAZOLE 500 MG/100 ML BAG IV SCH (04:53)
[2018-11-25 07:34] LABS: Eosinophils # (auto) 0.02 K/uL (0-0.5); Eosinophils % (auto) 0.3 %; Hemoglobin 13.7 g/dL (14.0-18.0); Immature Granulocytes # (auto) 0.01 K/uL (0.00-0.02); Immature Granulocytes % (auto) 0.2 %; Lymphocytes # (auto) 0.67 K/uL (1.2-3.4); Lymphocytes % (auto) 10.5 %; Mean Corpuscular Hgb Conc 34.3 g/dL (32-36); Mean Corpuscular Volume 95.2 fL (80-100); Mean Platelet Volume 10.9 fL (7.4-10.4); Monocytes # (auto) 0.68 K/uL (0.11-0.59); Monocytes % (auto) 10.6 %; Neutrophils # (auto) 5.01 K/uL (1.4-6.5); Neutrophils % (auto) 78.4 %; Platelet Count 189 K/uL (130-400); RDW Coefficient of Variation 13.1 % (11.5-14.5); RDW Standard Deviation 45.7 fL (36.4-46.3); White Blood Count 6.39 K/uL (4.8-10.8)
[2018-11-25 08:03] LABS: Albumin Level 2.8 gm/dl (3.4-5.0); BUN Creatinine Ratio 15.9 (10-20); Calcium 8.5 mg/dl (8.5-10.1); Creatinine Clr Calc Pharmacy 107.8 ml/min; Est GFR (African American) 119.5; Est GFR (Non-African American) 103.1; Potassium 3.9 mmol/L (3.5-5.1)
[2018-11-25 08:09] LABS: Albumin Globulin Ratio 0.8 (0.9-2); Globulin 3.7 gm/dl (2.5-4.0); Total Protein 6.5 gm/dl (6.4-8.2)
[2018-11-25] MEDS ORDERED: POLYETHYLENE (MIRALAX) 17 GM PACK PO PRN (10:17)
[2018-11-25] MEDS ORDERED: SENNA 8.6 MG TAB PO SCH (10:30)
--- NOTE | 2018-11-25 11:37 | Hospitalist Progress Note ---
Date of Service November 25, 2018 Assessment & Plan (1) SIRS (systemic inflammatory response syndrome): Patient met SIRS criteria on admission with WBC > 12k, RR > 24, HR >90 but does not appear to have sepsis (2) Abdominal pain: secondary to Cholangitis and biliary stenosis Transaminitis secondary to Cholangitis and biliary stenosis MRCP was completed on 11/23/18 on admission "Prior cholecystectomy. Moderate intrahepatic and extrahepatic biliary ductal dilation is noted with abrupt luminal narrowing about the distal common bile duct just proximal to the ampulla. No discrete choledocholithiasis identified, however this finding is concerning for underlying biliary stricture or choledocholithiasis. " 11/24/18 Patient s/p ERCP and biliary stent Ampullary stenosis, Pus drained. cholangitis noted, common bile duct stent placed Transaminitis from Cholangitis and biliary stenosis downtrending after ERCP and stent patient was transitioned from IV Zosyn to Ciprofloxacin and Metronidazole after ERCP with stent Patient is discharged to home with antibiotics ciprofloxacin 500 mg every 12 hours and Metronidazole 500 mg every 8 hours for 10 days Patient should avoid alcohol because of elevated liver function enzymes Patient should minimize taking acetaminophen for pain but should take acetaminophen for fever every 6 hours as needed Follow up with primary care doctor 11/28/2018 11:20 AM Provider Tk Patton MD Department Internal Medicine [facility] Dwight Jamison MD (Gastroenterology) is trying to schedule patient for repeat ERCP in 4 weeks at [facility] [address] [place], [place] [address] Phone: (3) Tobacco abuse: patient chews tobacco at home -patient was offered nicotine patch and patient declined Patient may take senna or miralax for constipation (4) DVT prophylaxis: -SCDS while inpatient, encourage ambulation Discharge Diagnosis Cholangitis and biliary stenosis (had ERCP and common bile duct stent), Transaminitis secondary to Cholangitis and biliary stenosis, Constipation Discharge Instructions Patient is discharged to home with antibiotics ciprofloxacin 500 mg every 12 hours and Metronidazole 500 mg every 8 hours for 10 days Patient should avoid alcohol because of elevated liver function enzymes Patient should minimize taking acetaminophen for pain but should take acetaminophen for fever every 6 hours as needed Patient may take senna or miralax for constipation Follow up with primary care doctor 11/28/2018 11:20 AM Provider Tk Patton MD Department Internal Medicine [facility] Dwight Jamison MD (Gastroenterology) is trying to schedule patient for repeat ERCP in 4 weeks at [place] [address], [place] [address] Phone: Subjective Patient tolerates diet no vomiting, afebrile, no acute abdominal pain denies chest pain or shortness of breath. is ambulatory Physical Exam 2 Vital Signs (Past 24 Hours): Last Vital Signs Temp 36.6 C 11/25/18 08:09 Pulse 53 L 11/25/18 08:09 Resp 16 11/25/18 08:09 BP 123/64 11/25/18 08:09 Pulse Ox 98 11/25/18 08:09 Constitutional: WD/WN, vitals as above Eyes: PERRL, conjunctivae normal, anicteric sclerae + eyes dysmorphic ENMT: external ear and nose normal, oropharynx normal Neck: trachea midline, no thyromegaly Respiratory: normal respiratory effort, lungs clear to auscultation Cardiovascular: RRR, no murmur, no edema Gastrointestinal (Abdomen): normal bowel sounds, soft, nontender, no hepatosplenomegaly Musculoskeletal: Head/Neck/Chest: normocephalic and head atraumatic Neurologic: PERRL, EOMI, accommodation nl, no face palsy, no dysarthria CN' s II-XI intact bilaterally Psychiatric: A+Ox3, euthymic affect _ (1) Abdominal pain Abdominal location: generalized Qualified Code(s): R10.84 - Generalized abdominal pain
--- NOTE | 2018-11-25 11:57 | Discharge Summary ---
Date of Service November 25, 2018 Admission HPI Per Admitting Provider Chief Complaint: Abdominal pain x 3 days. Primary Care Provider: Tk Patton MD This is a 48 year old male with no significant pmh who presents to [facility] ED secondary to abdominal pain x 3 days. Sx initially started on sunday after eating spicy meal, pain was central, nonradiating, relieved with rest, made worse with movement. Sx resolved in approx 2-3 hrs on there own w/o intervention. he felt well, was just, "sore." Was able to go to work Sunday and came home and drank 3 whiskey and cokes. Woke up early this morning at 1am with severe 16/10 abdominal pain, again central, nonradiating, worse with movement, deep breathing, lying flat. Sx impoved with rest, bringing knees to chest. Tried alkaseltzer no relief. [place] diaphoretic. Was able to return to sleep approx 1 hr and sx were unrelenting therefore he presented to ED. Currently pain 3/10. Denies fever, chills, recent URI or illness, chest pain, sob at rest, hemoptysis, cough, n/v/d, dysuria, hematuria, increased freq/ urg with urination. Last BM was 2 days ago, was baez in color, "grinder needle tip than usual." No blood in stool or melena. He is an every day tobacco user with snuff, 3/4 can a day. Drinks sunday and sunday nights 3 whiskey and cokes. Otherwise no PMH except he does have a hx of cholecystectomy and nephrolithiasis. No FH of Liver disease, +mother with colon cancer. [facility] significant other is at bedside, Gin[place]. Currently, patient is nearly pain free in his room on the floor- reports pain is maybe 1/10, but when he came in it was 10/10. No fevers, chills. Feels slightly constipated - otherwise no other complaints. Reports no weight loss, no changes in his stool pattern or color. Admission Exam Per Admitting Provider Gen: WD/WN, M, diaphoretic, +pain, sitting up in bed, pleasant, conversing easily Head: Normocephalic, Atraumatic Eyes: Sclera normal, no conjunctival injection, PERRLA, EOMI ENT: Gross hearing intact, normal pharynx, mucous membranes dry Neck: supple, no adenopathy, No JVD, no bruit, Resp: Clear to auscultation b/l, no wheeze, rales, rhonchi. Normal insp/exp effort, no accessory muscle use CV: Regular rate, regular rhythm, no murmur, rub, gallop, or ectopy Abd: + hypoactive BS x 4, soft, +tender in epigastrum/periumbilical region, + guarding, no rebound or rigidity, nondistended Musculoskeletal: moves extremities active rom x 4, strength intact, good line closer strength Extremities: No edema bilaterally Skin: warm, moist, no rash, negative turgor, cap refill < 2sec Neuro: Alert and oriented x 3, speech normal, good mood/affect, cran nerve 2-12 intact grossly : deferred Principal Diagnosis Cholangitis and biliary stenosis (had ERCP and common bile duct stent), Transaminitis secondary to Cholangitis and biliary stenosis, Constipation Discharge Exam Constitutional WD/WN, vitals as above Eyes PERRL, conjunctivae normal, anicteric sclerae + eyes dysmorphic ENMT external ear and nose normal, oropharynx normal Neck trachea midline, no thyromegaly Respiratory normal respiratory effort, lungs clear to auscultation Cardiovascular RRR, no murmur, no edema Gastrointestinal (Abdomen) normal bowel sounds, soft, nontender, no hepatosplenomegaly Musculoskeletal Head/Neck/Chest: normocephalic and head atraumatic Neurologic PERRL, EOMI, accommodation nl, no face palsy, no dysarthria CN's II-XI intact bilaterally Psychiatric A+Ox3, euthymic affect Discharge Data Allergies Allergy/AdvReac Type Severity Reaction Status Date / Time No Known Allergies Allergy Unknown Verified 11/23/18 10:54 Consultations 11/23/18 12:06 ED Decision to Admit Stat 11/23/18 12:51 Consult Gastroenterology Routine Procedures Performed Operation Date: 11/24/18 11:00 Actual Procedures p Endoscopic Retrograde Cholangiopancreato - Dwight Jamison MD Ordered Studies 11/23/18 10:38 CT abd pelvis IV con only Stat 11/23/18 12:19 MR MRCP Stat 11/24/18 [place] ERCP biliary ductal Routine Hospital Course (1) SIRS (systemic inflammatory response syndrome): Patient met SIRS criteria on admission with WBC > 12k, RR > 24, HR >90 but does not appear to have sepsis (2) Abdominal pain: secondary to Cholangitis and biliary stenosis Transaminitis secondary to Cholangitis and biliary stenosis MRCP was completed on 11/23/18 on admission "Prior cholecystectomy. Moderate intrahepatic and extrahepatic biliary ductal dilation is noted with abrupt luminal narrowing about the distal common bile duct just proximal to the ampulla. No discrete choledocholithiasis identified, however this finding is concerning for underlying biliary stricture or choledocholithiasis. " 11/24/18 Patient s/p ERCP and biliary stent Ampullary stenosis, Pus drained. cholangitis noted, common bile duct stent placed Transaminitis from Cholangitis and biliary stenosis downtrending after ERCP and stent patient was transitioned from IV Zosyn to Ciprofloxacin and Metronidazole after ERCP with stent Patient is discharged to home with antibiotics ciprofloxacin 500 mg every 12 hours and Metronidazole 500 mg every 8 hours for 10 days Patient should avoid alcohol because of elevated liver function enzymes Patient should minimize taking acetaminophen for pain but should take acetaminophen for fever every 6 hours as needed Follow up with primary care doctor 11/28/2018 11:20 AM Provider Tk Patton MD Department Internal Medicine [facility] Dwight Jamison MD (Gastroenterology) is trying to schedule patient for repeat ERCP in [address], [place] [address] Phone: (3) Tobacco abuse: patient chews tobacco at home -patient was offered nicotine patch and patient declined Patient may take senna or miralax for constipation (4) DVT prophylaxis: -SCDS while inpatient, encourage ambulation Discharge Diagnosis Cholangitis and biliary stenosis (had ERCP and common bile duct stent), Transaminitis secondary to Cholangitis and biliary stenosis, Constipation Discharge Instructions Patient is discharged to home with antibiotics ciprofloxacin 500 mg every 12 hours and Metronidazole 500 mg every 8 hours for 10 days Patient should avoid alcohol because of elevated liver function enzymes Patient should minimize taking acetaminophen for pain but should take acetaminophen for fever every 6 hours as needed Patient may take senna or miralax for constipation Follow up with primary care doctor 11/28/2018 11:20 AM Provider Tk Patton MD Department Internal Medicine [facility] Dwight Jamison MD (Gastroenterology) is trying to schedule patient for repeat ERCP in 4 weeks at [facility] [address] [place] [address] Phone: Total Time Total Time Spent Total Time Spent (In Minutes): 40 minutes Total Time Includes: Examination of the Patient, Discharge Planning and Medication Reconciliation Discharge Plan Discharge Items Patient Disposition: Home - Self-Care Reason For Visit: BILIARY OBSTRUCTION Discharge Diagnosis: Cholangitis and biliary stenosis (had ERCP and common bile duct stent), Transaminitis secondary to Cholangitis and biliary stenosis, Constipation Condition: Good Discharge Goals: Improve disease control Activity: Resume your previous activity Non-emergency contact: Primary Care Provider and Canine Service Teacher Call non-emergency contact if: you have any medication questions Diet: Regular Addtl Provider Instructions: Discharge Instructions Patient is discharged to home with antibiotics ciprofloxacin 500 mg every 12 hours and Metronidazole 500 mg every 8 hours for 10 days Patient should avoid alcohol because of elevated liver function enzymes Patient should minimize taking acetaminophen for pain but should take acetaminophen for fever every 6 hours as needed Patient may take senna or miralax for constipation Follow up with primary care doctor 11/28/2018 11:20 AM Provider Tk Patton MD Department Internal Medicine [facility] Dwight Jamison MD (Gastroenterology) is trying to schedule patient for repeat ERCP in [address] [address] Phone: Prescriptions: New sennosides [Senokot] 8.6 mg Tablet 8.6 mg PO QAM 30 Days Qty: 30 RF: 0 acetaminophen [Mapap (acetaminophen)] 325 mg Tablet 325 mg PO Q6H PRN (Reason: fever or pain) 5 Days Qty: 20 RF: 0 polyethylene glycol 3350 [Miralax] 17 gram Powder In Packet 17 g PO DAILY PRN (Reason: constipation) 30 Days Qty: 30 RF: 0 ciprofloxacin HCl 500 mg Tablet 500 mg PO Q12H 10 Days Qty: 20 RF: 0 metronidazole 500 mg Tablet 500 mg PO Q8H 10 Days Qty: 30 RF: 0 Continue No Known Home Medications RF: 0 Stand-Alone Forms: Call Back Authorization, On License Of [facility] Discharge Orders: Discharge Order (Routine); Ordered 11/25/18 Ordered By: Manolo Rinaldi Admission Data Admit Date/Time: 11/23/18 12:51 Attending Provider: Manolo Rinaldi Admit Provider: Manolo Rinaldi Primary Care Provider: Tk Patton Other Providers: Manolo Rinaldi ; Chrystal Carcamo Service: Telemetry Medical
--- NOTE | 2018-11-25 12:47 | Gastroenterology Progress Note ---
Date of Service November 25, 2018 Subjective Mr Sundeep Seo is a 48 yr old male who is Post Procedure day #2 from ERCP for cholangitis. ERCP by Dr. Jamison with sphincterotomy and sweeping of the bile duct with findings of sludge and pus. On Cipro/flagyl WBC 12->6, AST 131->55, ALT 295->170, Alk Phos 222->178. Physical Exam Vital Signs (Past 24 Hours): Last Vital Signs Temp 36.6 C 11/25/18 08:09 Pulse 53 L 11/25/18 08:09 Resp 16 11/25/18 08:09 BP 123/64 11/25/18 08:09 Pulse Ox 98 11/25/18 08:09
[2018-11-25] MEDS ORDERED: metroNIDAZOLE 500 MG TAB PO SCH (14:00)
[2018-11-25] MEDS ORDERED: CIPROFLOXACIN 500 MG TAB PO SCH (21:00)
== END 2018-11-25 16:00 | disposition home or self-care (01) | DRG 445 ==
LOC: ED 10:19 → 3N 12:51 → 2N 17:52 → 4W 11-24 12:02